=== PATIENT | female | born 1970 | race Caucasian/White ===

== ENCOUNTER → 2019-12-03 | Outpatient (CLI) | payer OTHER | LOC: SJCVCIMAG 15:15 | DX: R42 Dizziness and giddiness (principal); I10 Essential (primary) hypertension ==

== ENCOUNTER → 2020-12-01 | Outpatient (CLI) | payer OTHER | LOC: CAT 10:12 | DX: Z13.6 Encounter for screening for cardiovascular disorders (principal); I25.10 Atherosclerotic heart disease of native coronary artery without angina pectoris; E78.00 Pure hypercholesterolemia, unspecified ==